=== PATIENT | female | born 1995 | race Caucasian/White ===

== ENCOUNTER 2017-01-24 14:02 | Emergency (ER) | payer OTHER ==
[~2017-01-24] VITALS: Ht 157.5 cm; Wt 104.3 kg
[~2017-01-24 14:02] MED LIST: AUGMENTIN 500M500 MG PO; DAYQUIL COLD/FL1 SGL PO; MEDROL DOSEPAK1 PAC PO; MIRENA52 MG; VICKS DAYQUIL PO; VICKS NYQUIL C236 ML PO
--- NOTE | 2017-01-24 14:52 | ED GI/GU/ABDOMINAL COMPLAINT ---
History of Present Illness General Chief Complaint: Abdominal Pain/Flank Pain Stated Complaint: ABD PAIN Source: patient Exam Limitations: no limitations Vital Signs & Intake/Output Vital Signs & Intake/Output Vital Signs Date Time Temp Pulse Resp B/P Pulse O2 O2 Flow FiO2 Ox Delivery Rate 01/24 1929 98.0 95 18 125/68 97 Room Air 01/24 1657 98.5 87 18 130/78 96 Room Air 01/24 1410 96.9 110 15 170/90 98 Room Air ED Intake and Output 01/25 0000 01/24 1200 Intake Total Output Total Balance Patient 230 lb Weight Allergies Coded Allergies: morphine (HIVES 01/18/16) Reconcile Medications Ciprofloxacin HCl (Cipro) 500 MG TABLET 1 TAB PO BID ileitis Metronidazole (Flagyl) 500 MG TABLET 1 TAB PO TID ILEITIS Oxycodone HCl/Acetaminophen (Percocet 5-325 MG Tablet) 5 MG-325 MG TABLET 1-2 TAB PO Q6P PRN PAIN Triage Note: PT TO ED FOR LOWER ABD PAIN SINCE THURSDAY, STATES SHE TOOK ABX FOR A UTI AND IT HAS STILL NOT IMPROVED. +NAUSEA, LNBM YESTERDAY, ALSO C/O DIFFICULTY "PASSING GAS". Triage Nurses Notes Reviewed? yes ? n Is pt currently ? No Onset: Abrupt Duration: day(s): (few), constant, continues in ED Timing: recent history Quality/Severity: moderate, sharpness, severe Location: generalized abdomen Radiation: no radiation No Modifying Factors: none HPI: 21-year-old female comes into emergency room for further evaluation of abdominal pain. Symptoms of a going on for the past 4-5 days. Pain is intermittent. No vomiting. No fever. No changes in bowel movement. Nothing has seemed to make the symptoms better or worse. Patient was treated for urinary tract infection by her primary care doctor just prior to onset of symptoms. History of UTIs. (RASHAWN PRICE) Past History Travel History Traveled to [place] past 21 day No Medical History Any Pertinent Medical History? 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 No (ARSHAWN PRICE) Review of Systems Review of Systems Constitutional: Reports: no symptoms. EENTM: Reports: no symptoms. Respiratory: Reports: no symptoms. Cardiovascular: Reports: no symptoms. GI: Reports: see HPI. Genitourinary: Reports: no symptoms. Musculoskeletal: Reports: no symptoms. Skin: Reports: no symptoms. Neurological/Psychological: Reports: no symptoms. Hematologic/Endocrine: Reports: no symptoms. Immunologic/Allergic: Reports: no symptoms. All Other Systems: Reviewed and Negative (RASHAWN PRICE) Physical Exam Physical Exam General Appearance: well developed/nourished, no apparent distress, alert Head: atraumatic, normal appearance Eyes: Bilateral: normal appearance, EOMI. Ears, Nose, Throat, Mouth: hearing grossly normal, moist mucous membrane Neck: normal inspection, full range of motion Respiratory: normal breath sounds, no respiratory distress Cardiovascular: regular rate/rhythm Gastrointestinal: soft Back: normal inspection Extremities: normal range of motion Neurologic/Psych: awake, alert, oriented x 3, normal gait, normal mood/affect Skin: intact, normal color Core Measures ACS in differential dx? No Severe Sepsis Present: No Septic Shock Present: No (RASHAWN PRICE) Progress Differential Diagnosis: appendicitis, biliary colic, bowel obstruction, cholecystitis, diverticulitis, ectopic , gastritis, hepatitis, hernia, hemorrhoids, ischemic bowel, inflamm bowel dis, kidney stone, Feli-Mirna tear, ovarian cyst, ovarian torsion, pancreatitis, PID/cervicitis, peptic ulcer, PUD/ GERD, perforated viscous, threatened AB, UTI/pyelo Plan of Care: Orders Procedure Date/time Status Add-on Test (ER Only) 01/24 1912 Active C-REACTIVE PROTEIN 01/24 1500 Complete URINE 01/24 144 Complete URINALYSIS 01/24 1447 Complete LIPASE 01/24 1447 Complete COMPREHENSIVE METABOLIC PANEL 01/24 1447 Complete CBC WITHOUT DIFFERENTIAL 01/24 1447 Complete Laboratory Tests 01/24/17 1500: Anion Gap 14, Estimated GFR > 60, BUN/Creatinine Ratio 12.9, Glucose 96, Calcium 10.3 H, Total Bilirubin 0.6, AST 31, ALT 41, Alkaline Phosphatase 77, C- Reactive Prot, Quant 1.6 H, Total Protein 7.9, Albumin 4.5, Globulin 3.4, Albumin/Globulin Ratio 1.3, Lipase 65, CBC w Diff NO MAN DIFF REQ, RBC 5.09, MCV 85.0, MCH 28.1, RDW 13.9, MPV 10.7 H, Gran % 74.0, Lymphocytes % 18.3 L, Monocytes % 6.2, Eosinophils % 1.1, Basophils % 0.4, Absolute Granulocytes 7.2 H, Absolute Lymphocytes 1.8, Absolute Monocytes 0.6, Absolute Eosinophils 0.1, Absolute Basophils 0, PUBS MCHC 33.0 01/24/17 1454: Urine Color YEL, Urine Clarity CLEAR, Urine pH 6.0, Ur Specific [place] 1.015, Urine Protein NEG, Urine Ketones NEG, Urine Nitrite NEG, Urine Bilirubin NEG, Urine Urobilinogen 0.2, Ur Leukocyte Esterase NEG, Ur Microscopic EXAM NOT REQUIRED, Urine Hemoglobin NEG, Urine Glucose NEG, Urine Test NEGATIVE Microbiology 01/24 1921 STOOL: Cryptosporidium Antigen - CAN Cancelled: PT.DISCHARGED. 01/24 1921 STOOL: Giardia Antigen (ROYER) - CAN Cancelled: PT.DISCHARGED. 01/24 1921 STOOL: Clostridium difficile Toxin A & B - CAN Cancelled: PT.DISCHARGED. 01/24 1921 STOOL: Stool Culture - CAN Cancelled: PT.DISCHARGED. Diagnostic Imaging: Viewed by Me: CT Scan. Discussed w/RAD: CT Scan. Radiology Impression: SERVICE DATE: 01/24/17-1616 EXAM TYPE: CAT - CT ABD & PELVIS W IV CONTRAST EXAMINATION: CT ABDOMEN AND PELVIS WITH CONTRAST CLINICAL INFORMATION: Right lower quadrant abdominal pain. Evaluate for acute appendicitis. COMPARISON: None. TECHNIQUE: Multidetector volumetric imaging was performed of the abdomen and pelvis before and after the IV administration of 94 mL of Optiray 320 intravenous contrast. Sagittal and coronal reformatted images were obtained on the technologist's workstation. DLP: 711 mGy-cm FINDINGS: LUNG BASES: The visualized lung bases are unremarkable. LIVER, GALLBLADDER, AND BILIARY TREE: The liver is normal in size, shape, and attenuation. No focal hepatic lesion or biliary ductal dilatation is present. The gallbladder is unremarkable with no evidence of radiopaque gallstones, gallbladder wall thickening, or obvious pericholecystic inflammatory changes. PANCREAS: Unremarkable. SPLEEN: Unremarkable. ADRENAL GLANDS: Unremarkable. KIDNEYS AND URETERS: The kidneys are normal in size and enhance homogeneously, without focal lesions. There is no appreciable nephrolithiasis or hydroureteronephrosis of either kidney or renal collecting system. No ureteral stones are identified. BLADDER: Unremarkable. GASTROINTESTINAL TRACT: Evaluation of the gastrointestinal system is notable for circumferential thickening and inflammatory changes surrounding the distal ileum. A normal-appearing appendix is present within the right lower quadrant of the abdomen. Abdominal and pelvic bowel loops are normal in caliber, without findings indicative of small bowel obstruction or ileus. No organizing intra-abdominal or pelvic fluid collections are identified and there is no free intraperitoneal air. ABDOMINAL WALL: No significant hernia is appreciated. LYMPH NODES: Subcentimeter mesenteric lymph nodes within the right lower quadrant of the abdomen, likely reactive. VASCULAR: Patent abdominal vasculature. Normal course and caliber of the abdominal aorta and its branching vessels, without aneurysmal dilatation. PELVIC VISCERA: There is an enhancing lesion within the left ovary measuring approximately 1.9 cm. This could reflect a corpus luteal cyst. OSSEOUS STRUCTURES: No acute osseous abnormality. Normal alignment of the imaged thoracolumbar spine. No destructive osseous lesions. IMPRESSION: 1. Diffuse circumferential thickening involving the distal ileum with surrounding inflammatory changes. Primary diagnostic consideration is for an infectious or inflammatory ileitis such as inflammatory bowel disease. Correlate with lab values. 2. Normal-appearing appendix within the right lower quadrant of the abdomen. 3. Subcentimeter mesenteric lymph nodes within the right lower quadrant of the abdomen, likely reactive. 4. Incidental 1.9 cm enhancing lesion within the left ovary. This could reflect a corpus luteal cyst. If the patient is experiencing pelvic pain, consider correlation with pelvic ultrasound. DICTATED BY: BRIANNA POOL MD DATE/TIME DICTATED:01/24 COIL WRAPPER:KT DATE/TIME TRANSCRIBED:01/24/171829 CONFIDENTIAL, DO NOT COPY WITHOUT APPROPRIATE AUTHORIZATION. Initial ED EKG: none (RASHAWN PRICE) Departure Departure Disposition: HOME OR SELF CARE Condition: Stable Clinical Impression Primary Impression: Abdominal pain Secondary Impressions: Ileitis, terminal Referrals: TARIQ LEMOS DO (PCP/Family) Additional Instructions: Take ciprofloxacin and Flagyl as prescribed. Follow-up with brush maker machine. Call Thursday to make appointment. Take Percocet for pain. Return if any concerns worsening symptoms. Please go over all results of today's visit with your primary care doctor. Contact your primary care doctor to let them know you were here in the emergency room. There may be nonspecific findings which may not be related to your visit today here in the emergency room but may require further evaluation and chronic monitoring by your primary care doctor. If you had a laceration today the chance of foreign body always remains. You should follow-up with your primary care doctor for recheck in 3-5 days for a wound check. If you had an x-ray done there is a chance that a fracture could have been missed on initial read and you should follow-up with your primary care doctor for repeat x-rays if symptoms persist. If your blood pressure was elevated here in the emergency room please have rechecked by her primary care doctor within the next 48 hours by your primary care doctor. If you were prescribed a narcotic here in the emergency room or any type of controlled substances you're not allowed to drive while taking this medication or operate any type of heavy machinery. Narcotics can make you feel lightheaded dizziness nausea and can cause constipation. You may need to burr picker a stool softener. Thank you for choosing [facility] emergency room. Please return to the emergency room immediately if you have any other concerns worsening of symptoms. Departure Forms: Customer Survey General Discharge Information Prescriptions: Current Visit Scripts Ciprofloxacin HCl (Cipro) 1 TAB PO BID #14 TAB Metronidazole (Flagyl) 1 TAB PO TID #21 TAB Oxycodone HCl/Acetaminophen (Percocet 5-325 MG Tablet) 1-2 TAB PO Q6P PRN PAIN #10 TAB Comments 01/24/2017 8:45:[address] Santo from GI. Patient will be started on oral Flagyl and Cipro. Follow-up with them in the office this week. Return if any of the skin. Patient understands and agrees with plan of care. Nontoxic-appearing. In no apparent distress. She clinically looks well upon discharge. (RASHAWN PRICE) PA/PUBLIC STENOGRAPHER Co-Sign Statement Statement: ED Attending supervision documentation- [] I saw and evaluated the patient. I have also reviewed all the pertinent lab results and diagnostic results. I agree with the findings and the plan of care as documented in the PA's/PUBLIC STENOGRAPHER's documentation. [X] I have reviewed the ED Record and agree with the PA's/PUBLIC STENOGRAPHER's documentation. [] Additions or exceptions (if any) to the PAs/PUBLIC STENOGRAPHER's note and plan are summarized below: [] (PABLO MCCORMICK,LILLIAM)
[2017-01-24 15:07] LABS: ABSOLUTE BASOPHIL COUNT 0 /CUMM (0.0-0.2); ABSOLUTE EOSINOPHIL COUNT 0.1 /CUMM (0.0-0.7); ABSOLUTE GRANULOCYTE CT 7.2 /CUMM (1.4-6.5); ABSOLUTE LYMPH COUNT 1.8 /CUMM (1.2-3.4); ABSOLUTE MONOCYTE COUNT 0.6 /CUMM (0.10-0.60); BASOPHIL % 0.4 % (0.0-2.0); EOSINOPHIL % 1.1 % (0-5); HEMATOCRIT 43.3 % (37-47); MEAN CORPUSCULAR HGB 28.1 PG (27.0-31.0); MEAN PLATELET VOLUME 10.7 FL (7.4-10.4); PLATELET COUNT 241 /CUMM (130-400); RBC DISTRIBUTION WIDTH 13.9 % (11.5-14.5); RED BLOOD CELL CT 5.09 /CUMM (4.20-5.40); WHITE BLOOD CELL COUNT 9.8 /CUMM (4.8-10.8)
--- NOTE | 2017-01-24 18:45 | CT SCAN REPORT ---
EXAMINATION: CT ABDOMEN AND PELVIS WITH CONTRAST CLINICAL INFORMATION: Right lower quadrant abdominal pain. Evaluate for acute appendicitis. COMPARISON: None. TECHNIQUE: Multidetector volumetric imaging was performed of the abdomen and pelvis before and after the IV administration of 94 mL of Optiray 320 intravenous contrast. Sagittal and coronal reformatted images were obtained on the technologist's workstation. DLP: 711 mGy-cm FINDINGS: LUNG BASES: The visualized lung bases are unremarkable. LIVER, GALLBLADDER, AND BILIARY TREE: The liver is normal in size, shape, and attenuation. No focal hepatic lesion or biliary ductal dilatation is present. The gallbladder is unremarkable with no evidence of radiopaque gallstones, gallbladder wall thickening, or obvious pericholecystic inflammatory changes. PANCREAS: Unremarkable. SPLEEN: Unremarkable. ADRENAL GLANDS: Unremarkable. KIDNEYS AND URETERS: The kidneys are normal in size and enhance homogeneously, without focal lesions. There is no appreciable nephrolithiasis or hydroureteronephrosis of either kidney or renal collecting system. No ureteral stones are identified. BLADDER: Unremarkable. GASTROINTESTINAL TRACT: Evaluation of the gastrointestinal system is notable for circumferential thickening and inflammatory changes surrounding the distal ileum. A normal-appearing appendix is present within the right lower quadrant of the abdomen. Abdominal and pelvic bowel loops are normal in caliber, without findings indicative of small bowel obstruction or ileus. No organizing intra-abdominal or pelvic fluid collections are identified and there is no free intraperitoneal air. ABDOMINAL WALL: No significant hernia is appreciated. LYMPH NODES: Subcentimeter mesenteric lymph nodes within the right lower quadrant of the abdomen, likely reactive. VASCULAR: Patent abdominal vasculature. Normal course and caliber of the abdominal aorta and its branching vessels, without aneurysmal dilatation. PELVIC VISCERA: There is an enhancing lesion within the left ovary measuring approximately 1.9 cm. This could reflect a corpus luteal cyst. OSSEOUS STRUCTURES: No acute osseous abnormality. Normal alignment of the imaged thoracolumbar spine. No destructive osseous lesions. IMPRESSION: 1. Diffuse circumferential thickening involving the distal ileum with surrounding inflammatory changes. Primary diagnostic consideration is for an infectious or inflammatory ileitis such as inflammatory bowel disease. Correlate with lab values. 2. Normal-appearing appendix within the right lower quadrant of the abdomen. 3. Subcentimeter mesenteric lymph nodes within the right lower quadrant of the abdomen, likely reactive. 4. Incidental 1.9 cm enhancing lesion within the left ovary. This could reflect a corpus luteal cyst. If the patient is experiencing pelvic pain, consider correlation with pelvic ultrasound.
[2017-01-24] MEDS ORDERED: PERCOCET 5-3251 EACH PO (19:19)
[2017-01-24] MEDS ORDERED: CIPRO500 M1 PO (19:19)
[2017-01-24] MEDS ORDERED: FLAGYL500 MG PO (19:19)
[2017-01-24 19:29] VITALS: BP 125/68
== END 2017-01-24 19:39 ==
LOC: ERH 14:02
PROVIDERS: Physician Assistant Medical
DX: K50.00 Crohn's disease of small intestine without complications (principal)
CPT/HCPCS: 74177; 81003; 81025; 87045; 87328; 87329; 96374; J1885